=== PATIENT | male | born 1940 | race Caucasian/White ===

== ENCOUNTER → 2018-04-10 | Outpatient (CLI) | payer MEDICARE ==
[~2018-04-10] MED LIST: ACCUPRIL PO; AMOX500 PO; ASPI81CH PO; CARV25 PO; CORTISOL PO; Coreg12.5 MG PO; Coumadin3 MG PO; ELIQUIS2.5 MG PO; FINA5 PO; FURO40 PO; QUIN5 PO; SIMV40 PO; SOTO80 PO; TAMS.4ER PO; VICODIN 5-3001 EACH PO; WARF5 PO; [UNRECOGNIZED DRUG - OTHER]
== END ==
LOC: LAB 13:51 → LAB SHORT 13:51
DX: R30.0 Dysuria (principal)
CPT/HCPCS: 87086

== ENCOUNTER → 2018-04-28 | Outpatient (CLI) | payer MEDICARE ==
[2018-04-28 10:21] LABS: Source, Urine Clean Catch
[2018-04-28 13:34] LABS: Bilirubin, Urine Neg (Neg); Blood, Urine Neg (Neg); Glucose Qualitative, Urine Neg (Neg); Ketones, Urine Neg (Neg); Leukocyte Esterase, Urine Neg (Neg); Nitrite, Urine Neg (Neg); Protein, Urine Neg (Neg); Specific Gravity, Urine 1.025 (1.003-1.022); Urobilinogen, Urine NORM (Normal)
[2018-04-28 13:55] LABS: Appearance, Urine Clear (Clear); Color, Urine Yellow (P-Yellow)
== END ==
LOC: LAB SHORT 10:19 → LAB 10:19
PROVIDERS: Nurse Practitioner Family
DX: R30.0 Dysuria (principal)
CPT/HCPCS: 81003

== ENCOUNTER 2024-12-03 13:15 | Day surgery (SDC) | payer MEDICARE ==
[2024-12-03] VITALS (18 sets, daily range): BP systolic 106–188; BP diastolic 59–80
[~2024-12-03] VITALS: Ht 170.2 cm; Wt 93.8 kg
[~2024-12-03 13:15] MED LIST changes: +CO Q10100 MG PO; -ELIQUIS2.5 MG PO; +ELIQUIS5 M2 PO; +FISH OIL 1,0001 EA10 PO; +HYDROCODONE-AC1 EA19 PO; +LOSA25 PO; +MULTI-VITAMIN1 EAC2 PO; +Nexium40 MG PO; -SIMV40 PO; -VICODIN 5-3001 EACH PO; +ZOCOR20 MG PO
--- NOTE | 2024-12-03 14:02 | NUR ---
History, Chart, Medications and Allergies reviewed before start of procedure. Pre-Op teaching done. Pt verbalizes understanding. Patient confirms NPO status and agrees with scheduled surgery. Patient States Post-Procedure ride home has been arranged. Ambulatory in Day Surgery.
--- NOTE | 2024-12-03 14:27 | NUR ---
12/03/24 1427 Richard Olmstead CONFIRMED AND REVIEWED H&P, MEDCICATIONS, ALLERGIES, MEDICAL HISTORY, RESPIRATORY HISTORY, VITAL SIGNS, 3-LEAD EKG, CONSENTS, AND PHYSICIAN ORDERS. PATIENT CONFIRMS NPO STATUS AND AGREES WITH SCHEDULED PROCEDURE. MONITOR INTACT WITH CONTINUOUS PULSE OXIMETRY, CAPNOGRAPHY, 3-LEAD EKG, INTERMITTENT BP. SUPPLEMENTAL O2 TO BE TITRATED THROUGHOUT PROCEDURE TO MAINTAIN O2 SATURATION ABOVE 90%. PATIENT DETERMINED TO BE ASA APPROPRIATE FOR PROPOFOL SEDATION PRIOR TO START OF PROCEDURE BY DR. CLANCY
--- NOTE | 2024-12-03 15:16 | NUR ---
Discharge instructions reviewed with patient. Patient verbalizes understanding. Copy given to patient to take home. Patient States Post-Procedure ride home has been arranged. Discharged via wheelchair to private car for ride home. VITAL SIGNS RETURN TO BASELINE AT D/C
== END 2024-12-03 23:00 | disposition home or self-care (01) ==
LOC: ORSCMMR 13:15 → ORD 14:15 → ORSCMMR 14:15
PROVIDERS: Surgery
PROC: 0DJD8ZZ Inspection of Lower Intestinal Tract, Via Natural or Artificial Opening Endoscopic (ICD-10-PCS; principal; 2024-12-03 14:15)
DX: Z12.11 Encounter for screening for malignant neoplasm of colon (principal); K57.30 Diverticulosis of large intestine without perforation or abscess without bleeding; K55.20 Angiodysplasia of colon without hemorrhage; Z86.0101 Personal history of adenomatous and serrated colon polyps; Z86.0102 Personal history of hyperplastic colon polyps; I10 Essential (primary) hypertension; I42.9 Cardiomyopathy, unspecified; K21.9 Gastro-esophageal reflux disease without esophagitis; Z85.46 Personal history of malignant neoplasm of prostate; E78.5 Hyperlipidemia, unspecified; I48.0 Paroxysmal atrial fibrillation; Z79.01 Long term (current) use of anticoagulants; Z79.899 Other long term (current) drug therapy
CPT/HCPCS: J2704; J7120